=== PATIENT | male | born 1940 | race Caucasian/White ===

== ENCOUNTER 2017-04-12 21:59 | Emergency (ER) | payer MEDICARE, OTHER ==
[2017-04-12 22:10] VITALS: BP 173/95
[2017-04-12] MEDS ORDERED: LIDOCAINE 2%-EPI 1:100000 20 ML MDV ONE (22:21)
--- NOTE | 2017-04-12 22:35 | ED Physician Documentation ---
History of Present Illness - Stated complaint Stated Complaint: R HAND LAC - Chief complaint Chief Complaint: Laceration - History obtained from History obtained from: Patient (pt is here for evaluation of a right hand laceration. he states that ht occured while he was cleaning a glass and the glass broke. + bleeding. last Td shot was 3 years ago.) Review of Systems Skin: reports: Laceration (s) Neurologic: reports: Other (no tingling to finger of right hand.) PD PAST MEDICAL HISTORY - Past Medical History Past Medical History: Yes Cardiovascular: Hypertension - Past Surgical History Past Surgical History: Yes Ortho: Hip replacement - Present Medications Home Medications: Ambulatory Orders Medication Instructions Recorded Confirmed Finasteride 1 tab PO DAILY 04/12/17 04/12/17 Lisinopril [Prinivil] 1 tab PO DAILY 04/12/17 04/12/17 - Allergies Allergies/Adverse Reactions: Allergies Allergy/AdvReac Type Severity Reaction Status Date / Time No Known Drug Allergies Allergy Verified 04/12/17 22:09 - Social History Does the pt smoke?: No Smoking Status: Never smoker Does the pt drink ETOH?: Yes - POLST Patient has POLST: No PD ED PE NORMAL - Vitals Vital signs reviewed: Yes - General General: Alert and oriented X 3, Well developed/nourished - Cardiac Cardiac: Strong equal pulses (Radial ) - Respiratory Respiratory: No respiratory distress - Derm Derm: Other (2cm laceration to the dorsum web space of the right index finger. ) - Neuro Neuro: Other (sensation intact to the right index finger) Results - Vitals Vitals: Vital Signs - 24 hr 04/12/17 22:08 Temperature 36.5 C Heart Rate 75 Respiratory 18 Rate Blood Pressure 173/95 H O2 Saturation 20 L Oxygen O2 Source Room air Procedures - Laceration (location) right index finger Wound type: Flap Neurovascular status: Sensory intact, Motor intact, Vascular intact Tendon involvement: Tendon intact Anesthesia: Lidocaine 1% with epi Wound Preparation: Irrigated copiously NS, Wound explored Skin layer closure: Nylon, Size #-0 - enter number (5-)), Sutures - enter # (4) Other: Patient tolerated well Complexity: Simple PD MEDICAL DECISION MAKING - ED course Complexity details: d/w patient ED course: pt tolerated well. No signs of FB. no x-ray obtained. Pt was N/V intact. closed as above. discussed care with the pt. No indication for abx. Departure - Departure Disposition: 01 Home, Self Care Clinical Impression: Laceration Condition: Good Instructions: ED Laceration Hand Follow-Up: primary, care provider [Other] Comments: Keep the stitches clean and dry but you can shower and wash your hands. Have the stitches removed in about 10 days. Return to the ER for any new or worsening symptoms
== END 2017-04-12 22:50 | disposition home or self-care (01) ==
LOC: ED 21:59
DX: S61.210A Laceration without foreign body of right index finger without damage to nail, initial encounter (principal); W25.XXXA Contact with sharp glass, initial encounter; Y93.G1 Activity, food preparation and clean up; I10 Essential (primary) hypertension; Z96.649 Presence of unspecified artificial hip joint
CPT/HCPCS: 12001; 99282; 99283

== ENCOUNTER 2023-02-01 12:57 | Emergency (ER) | payer MEDICARE, OTHER ==
--- NOTE | 2023-02-01 13:19 | ED Physician Documentation ---
PD HPI HEAD INJURY - Stated complaint Stated Complaint: HEAD INJ - Chief complaint Chief Complaint: Trauma Hd/Nk - History obtained from History obtained from: Patient - History of Present Illness Mechanism of head injury: Fell (he states he tripped on a small bump/curb he did not see and fell face forward, striking face and abrading knuckles and left knee. No LOC.) Where head injury occurred: Street Timing - onset: Today Location of injury: Front Quality of pain: Aching Associated symptoms: No: LOC, AMS Symptoms worsen with: Palpation Contributing factors: Anticoagulated. No: Intoxicated Similar symptoms before: Has not had sx before Review of Systems Eyes: denies: Loss of vision, Decreased vision Skin: reports: Abrasion (s) (left knee, right finger tips, and upper lip.), Laceration (s) (forehead and bridge of nose) Musculoskeletal: denies: Neck pain, Back pain Neurologic: denies: Altered mental status, Headache PD PAST MEDICAL HISTORY - Past Medical History Cardiovascular: Hypertension - Past Surgical History Past Surgical History: Yes Ortho: Hip replacement - Present Medications Home Medications: Ambulatory Orders Medication Instructions Recorded Confirmed Finasteride 1 tab PO DAILY 04/12/17 02/01/23 lisinopriL [Prinivil] 20 mg PO DAILY 04/12/17 02/01/23 Chlorthalidone 25 mg PO DAILY 02/01/23 02/01/23 Dronedarone HCl [Multaq] 400 mg PO DAILY 02/01/23 02/01/23 Rivaroxaban [Xarelto] 20 mg PO DAILY 02/01/23 02/01/23 Tadalafil [Cialis] 20 mg PO DAILY 02/01/23 02/01/23 - Allergies Allergies/Adverse Reactions: Allergies Allergy/AdvReac Type Severity Reaction Status Date / Time No Known Drug Allergies Allergy Verified 02/01/23 14:10 - Social History Does the pt smoke?: No Smoking Status: Never smoker Does the pt drink ETOH?: Yes Does the pt have substance abuse?: No - POLST Patient has POLST: No PD ED PE NORMAL - Vitals Vital signs reviewed: Yes - General General: Alert and oriented X 3, No acute distress, Well developed/nourished - HEENT HEENT: PERRL, EOMI, Other (upper lip abrasion at philtrum. bridge of nose abrasion with small lac 3 mm. no FB. right forehead above eyebrow with abraded skin and laceration. No FB. minimal active bleeding. ) - Neck Neck: Supple, no meningeal sign, No bony TTP, No adenopathy - Derm Derm: Normal color, Warm and dry - Extremities Extremities: Other (her has some bandaides on right finger tips. He says they are not injured significantly and shared decision to keep bandaided.) - Neuro Neuro: Alert and oriented X 3, No motor deficit, No sensory deficit, Normal speech Eye Opening: Spontaneous Motor: Obeys Commands Verbal: Oriented GCS Score: 15 Results - Vitals Vitals: Vital Signs - 24 hr 02/01/23 02/01/23 13:05 14:59 Temperature 37.2 C Heart Rate 71 58 L Respiratory 15 18 Rate Blood Pressure 121/70 O2 Saturation 98 99 Oxygen O2 Source Room air - Rads (name of study) head CT Relevant Findings:: Prelim report reviewed (no ICH nor fractures. ), EMP independent interpretation of test Procedures - Laceration (location) forehead right Length in cm: 2.2 Wound type: Linear Anesthesia: LET Skin layer closure: Nylon, Running, Size #-0 - enter number (6), Sutures - enter # (10) PD Medical Decision Making - ED course Complexity details: reviewed results (head CT without ICH nor acute injury. ), considered differential (he is on Xarelto and had fall striking head. Will get head CT to ensure no ICH. Otherwise forehead lac needs suturing. ), d/w patient Departure - Departure Disposition: 01 Home, Self Care Clinical Impression: Fall from slip, trip, or stumble, Multiple abrasions, Forehead laceration, Anticoagulant long-term use Condition: Stable Record reviewed to determine appropriate education?: Yes Instructions: ED Laceration Facial Sutr Tape Follow-Up: Rodney Mason MD [Primary Care Provider] - Comments: It is okay to wash and shower. Clean off the wound twice a day with soap and water, or peroxide and water. Apply some antibiotic ointment to it to keep it moist. Also to watch for signs of infection such as purulence, redness or increasing pain. Return to your primary care or the ER at the specified time for suture removal. Suture removal 8 to 9 days. Tylenol every 4 hours if needed for pain. Continue with usual medicines. We did do a CT scan of your head and face and neck. Concern with being on anticoagulants is potential ease of getting bleeding and closed spaces such as in the brain. Your CT scans appeared normal without any signs of bleeding, swelling, fractures. Normal activity is okay. Forms: PCP List Discharge Date/Time: 02/01/23 14:59
[2023-02-01] MEDS ORDERED: LIDOCAINE-EPINEPH-TETRACAINE 3 ML SYRINGE TOP STA (13:29)
--- NOTE | 2023-02-01 13:58 | CT Report ---
PROCEDURE: MAXILLOFACIAL WO INDICATIONS: facial pain s/p fall TECHNIQUE: Noncontrast 1.5 mm thick axial images acquired from the mandible through the frontal sinuses, with co alexis and sagittal reformatting. For radiation dose reduction, the following was used: automated ex posure control, adjustment of mA and/or kV according to patient size. COMPARISON: None. FINDINGS: Image quality: Excellent. Bones and teeth: Orbital gallardo are intact. Sinus gallardo show no fracture or deformity. Nasal bones and septum are intact. Visualized portions of the mandible demonstrate no fractures or subluxation. Zygomatic arches are intact. Pterygoid plates are intact. Visualized portions of the skull base an d auditory canals are intact. Sinuses: There is mild mucosal thickening within the bilateral ethmoid, frontal, and right maxillary sinuses. Mastoid air cells are aerated. Soft tissues: No edema, masses, or fluid collections. No enlarged lymph nodes. No soft tissue lace rations or debris. Vascular: Visualized vascular structures appear normal in the absence of contrast. Bony vascular fo ramina and canals are intact. IMPRESSION: 1. No fracture. 2. Sinus disease. Reviewed by: Fabiola Tamayo MD on 02/01/2023 1:57 PM PDT Approved by: Fabiola Tamayo MD on 02/01/2023 1:57 PM PDT Station ID: [id number]
--- NOTE | 2023-02-01 13:58 | CT Report ---
PROCEDURE: HEAD WO INDICATIONS: fall, head injury, pt takes xarelto TECHNIQUE: Noncontrast 4.5 mm thick angled axial sections acquired from the foramen magnum to the vertex. For r adiation dose reduction, the following was used: automated exposure control, adjustment of mA and/or kV according to patient size. COMPARISON: None. FINDINGS: Image quality: Excellent. CSF spaces: Basal cisterns are patent. No extra-axial fluid collections. Ventricles are normal in size and shape. Brain: No midline shift. No intracranial masses or hemorrhage. Ramirez-white matter interface is norm al. Skull and face: Calvarium and visualized facial bones are intact, without suspicious lesions. Sinuses: Visualized sinuses and mastoids are clear. IMPRESSION: No acute intracranial abnormality. Reviewed by: Fabiola Tamayo MD on 02/01/2023 1:56 PM PDT Approved by: Fabiola Tamayo MD on 02/01/2023 1:56 PM PDT Station ID: [id number]
--- NOTE | 2023-02-01 14:34 | CT Report ---
PROCEDURE: CERVICAL SPINE WO INDICATIONS: fall, head/neck pain TECHNIQUE: Noncontrast 3 mm thick sections acquired from the skull base to the T4 level. Sagittal and coronal r eformats were then constructed. For radiation dose reduction, the following was used: automated exp osure control, adjustment of mA and/or kV according to patient size. COMPARISON: None. FINDINGS: Image quality: Excellent. Bones: No fractures or dislocations. Visualized superior ribs are intact. Multilevel degenerative disc and facet disease present. Soft tissues: Prevertebral soft tissues are normal in thickness. No paravertebral hematomas. No ap ical pneumothoraces. IMPRESSION: No acute fracture. No osseous lesion. If symptoms and/or clinical suspicion for pathology continue, f urther assessment with MRI or bone scan is recommended for further assessment. Reviewed by: Fabiola Tamayo MD on 02/01/2023 2:33 PM PDT Approved by: Fabiola Tamayo MD on 02/01/2023 2:33 PM PDT Station ID: [id number]
[2023-02-01 15:06] VITALS: BP 121/70; O2SAT 99
== END 2023-02-01 14:59 | disposition home or self-care (01) ==
LOC: ED 12:57
DX: S01.81XA Laceration without foreign body of other part of head, initial encounter (principal); W01.0XXA Fall on same level from slipping, tripping and stumbling without subsequent striking against object, initial encounter; I10 Essential (primary) hypertension; Z79.01 Long term (current) use of anticoagulants; Z79.899 Other long term (current) drug therapy
CPT/HCPCS: 12011; 36415; 99284

== ENCOUNTER 2023-07-19 14:43 | Outpatient (CLI) | payer MEDICARE, OTHER | END 2023-07-19 14:44 | disposition EMS.NT | LOC: EMS 14:43 | DX: S00.31XA Abrasion of nose, initial encounter (principal); W01.0XXA Fall on same level from slipping, tripping and stumbling without subsequent striking against object, initial encounter; Y92.89 Other specified places as the place of occurrence of the external cause; Z79.01 Long term (current) use of anticoagulants ==

== ENCOUNTER 2023-07-19 15:21 | Emergency (ER) | payer MEDICARE, OTHER ==
--- NOTE | 2023-07-19 16:07 | ED Physician Documentation ---
History of Present Illness - Stated complaint Stated Complaint: HEAD INJ - Chief complaint Chief Complaint: Trauma Hd/Nk - History obtained from History obtained from: Patient - History of Present Illness Pain level max: 5 Pain level now: 5 - Additonal information Additional information: Patient is an 83-year-old male who presents to the emergency department after trip and fall today. He tripped over a small sandbag and struck his face on the concrete. He does take Xarelto but stopped taking it 2 days ago in preparation for an EGD. Has abrasions to the face. No loss of consciousness. Teeth feel normal. No neck or back pain. No numbness or tingling. No seizure activity. No confusion. He states that he had a fall about a week ago where he struck his head as well. He states head CT was negative at that time. Review of Systems Constitutional: denies: Fever, Chills Respiratory: denies: Cough GI: denies: Nausea, Vomiting, Diarrhea Skin: denies: Rash Musculoskeletal: denies: Neck pain, Back pain Neurologic: denies: Focal weakness, Numbness, Confused PD PAST MEDICAL HISTORY - Past Medical History Past Medical History: Yes Cardiovascular: Hypertension - Past Surgical History Past Surgical History: Yes Ortho: Hip replacement - Present Medications Home Medications: Ambulatory Orders Medication Instructions Recorded Confirmed Chlorthalidone 12.5 mg PO DAILY 02/01/23 07/19/23 Dronedarone HCl [Multaq] 400 mg PO BID 02/01/23 07/19/23 Rivaroxaban [Xarelto] 20 mg PO DAILY 02/01/23 07/19/23 Tadalafil [Cialis] 20 mg PO DAILY PRN 02/01/23 07/19/23 Chlorthalidone 0 mg 07/19/23 Dutasteride [Avodart] 0.5 mg PO DAILY 07/19/23 07/19/23 Lisinopril [Zestril] 40 mg PO DAILY 07/19/23 07/19/23 cephALEXin [Keflex] 500 mg PO Q6H 07/19/23 07/19/23 - Allergies Allergies/Adverse Reactions: Allergies Allergy/AdvReac Type Severity Reaction Status Date / Time No Known Drug Allergies Allergy Verified 07/19/23 15:40 - Social History Does the pt smoke?: No Smoking Status: Never smoker Does the pt drink ETOH?: Yes Does the pt have substance abuse?: No - POLST Patient has POLST: No PD ED PE NORMAL - Vitals Vital signs reviewed: Yes - General General: Alert and oriented X 3, No acute distress, Well developed/nourished - HEENT HEENT: PERRL, Other (Abrasions to the upper lip and bridge of the nose. Mild tenderness over the bridge of the nose. Normal dentition. Normal bite. No facial bone tenderness. No palpable skull fractures. No scalp hematomas. No lacerations) - Neck Neck: Supple, no meningeal sign, No bony TTP - Cardiac Cardiac: RRR, Strong equal pulses - Respiratory Respiratory: No respiratory distress, Clear bilaterally - Abdomen Abdomen: Soft, Non tender, Non distended - Back Back: No spinal TTP - Derm Derm: Warm and dry - Extremities Extremities: Normal ROM s pain - Neuro Neuro: Alert and oriented X 3, hold worker 2-12 intact, No motor deficit, No sensory deficit, Normal speech Eye Opening: Spontaneous Motor: Obeys Commands Verbal: Oriented GCS Score: 15 - Psych Psych: Normal mood, Normal affect Results - Vitals Vitals: Vital Signs - 24 hr 07/19/23 07/19/23 07/19/23 15:33 17:50 19:00 Temperature 36.0 C L Heart Rate 89 77 78 Respiratory 15 18 18 Rate Blood Pressure 179/83 H 165/82 H 159/98 H O2 Saturation 97 100 96 07/19/23 20:00 Temperature Heart Rate 80 Respiratory 16 Rate Blood Pressure 144/72 H O2 Saturation 94 Oxygen O2 Source Room air - Labs Labs: Laboratory Tests 07/19/23 07/19/23 07/19/23 18:08 18:08 18:08 WBC 8.3 RBC 4.33 L Hgb 12.0 L Hct 37.3 L MCV 86.1 MCH 27.7 MCHC 32.2 RDW 20.7 H Plt Count 257 MPV 9.3 Neut # (Auto) Not Reportable Lymph # (Auto) Not Reportable Hunt # (Auto) Not Reportable Eos # (Auto) Not Reportable Baso # (Auto) Not Reportable Absolute Nucleated RBC Not Reportable Total Counted 100 Band Neuts % (Manual) 0 Abnorm Lymph % (Manual) 0 Nucleated RBC % Not Reportable Neutrophils # (Manual) 6.6 Lymphocytes # (Manual) 1.1 L Monocytes # (Manual) 0.7 Eosinophils # (Manual) 0.0 Basophils # (Manual) 0.0 Differential Comment MANUAL DIFFERENTIAL WBC Morphology 1+ SMUDGE CELLS Platelet Estimate NORMAL (130-450,000) Platelet Morphology NORMAL APPEARANCE RBC Morph Micro Appear NORMAL APPEARANCE PT 12.5 INR 1.2 APTT 32.7 Sodium 139 Potassium 4.1 Chloride 105 Carbon Dioxide 25 Anion Gap 9.0 BUN 29 H Creatinine 1.0 Estimated GFR (MDRD) 72 L Glucose 109 H Calcium 9.5 Total Bilirubin 0.4 AST 19 ALT 17 Alkaline Phosphatase 57 Total Protein 6.7 Albumin 4.0 Globulin 2.7 Albumin/Globulin Ratio 1.5 - Rads (name of study) head Ct Relevant Findings:: Final report received, See rad report maxillofacial CT Relevant Findings:: Final report received, See rad report cervical spine CT Relevant Findings:: Final report received, See rad report PD Medical Decision Making - ED course Complexity details: reviewed results, re-evaluated patient, considered differential, d/w patient, d/w senior solutions consultant ED course: 83-year-old male status post a ground-level fall. Abrasions to the bridge of the nose and upper lip. Dermabond was applied to these areas as they were slightly oozing. Tetanus up-to-date. He has been off of his Xarelto for the past several days. Head CT shows a small 5 mm subdural hemorrhage in the right frontal area. No midline shift. Discussed the case with Dr. Tobin, neurosurgery on-call at [facility]. She recommends repeat head CT in 4 to 6 hours, if continues to be stable, can discharge home. Recommends holding Xarelto for an additional [address] does not show any significant change. Patient counseled regarding signs and symptoms for which I believe and urgent re-evaluation would be necessary. Patient with good understanding of and agreement to plan and is comfortable going home at this time This document was made in part using voice recognition software. While efforts are made to proofread this document, sound alike and grammatical errors may occur. Departure - Departure Disposition: 01 Home, Self Care Clinical Impression: Traumatic subdural hemorrhage Qualifiers: Encounter type: initial encounter Loss of consciousness presence/duration: without LOC Qualified Code(s): S06.5X0A - Traumatic subdural hemorrhage without loss of consciousness, initial encounter Facial abrasion Qualifiers: Encounter type: initial encounter Qualified Code(s): S00.81XA - Abrasion of other part of head, initial encounter Condition: Good Instructions: ED Head Injury Closed Follow-Up: Rodney Mason MD [Primary Care Provider] - Within 1 week Comments: You have a small amount of bleeding around your brain known as a subdural hemorrhage. Your repeat head CT does not show any significant progression. You will need to hold your Xarelto for the next 5 days. You can resume it on July 25, 2023. Please follow-up with your doctor for further care. Return if you worsen. I spoke with neurosurgery, Dr. Tobin at [facility] tonight. Do not apply any ointment to the areas that were dermabonded tonight as this will dissolve the glue. These areas will heal on their own over the next few days. Please return to the emergency department for worsening headaches, mental status changes, vomiting or any other new or worrisome symptoms. Forms: PCP List
--- NOTE | 2023-07-19 16:42 | CT Report ---
PROCEDURE: CT brain without contrast INDICATIONS: fall, pain, pt on eliquis TECHNIQUE: Helical axial CT of the brain was obtained without contrast and reformatted in multiple p lanes. Radiation dose reduction was achieved using automated exposure control or adjustment of mA and /or kV according to patient size. COMPARISON: None FINDINGS: CSF spaces: Ventricles are appropriate in size and position. No hydrocephalus. Basal cisterns unre markable. Brain: Limited by millimeter subdural hematoma noted on the right extends over the inferior right fr ontal lobe. No mass effect or midline shift. Skull and face: Right periorbital hematoma noted as well. No evidence of skull fracture Sinuses: Visualized sinuses and mastoids are clear. IMPRESSION: Thin right frontal acute subdural hematoma measures 5 mm in thickness. No midline shift. Underlying atrophy and multifocal white matter chronic ischemic change. Right periorbital soft tissue hematoma Note: Critical results were discussed with patient's Physician in the ER on 07/19/2023 at 3:37 PM VALERIY felton. Reviewed by: Jesus Estrada MD on 07/19/2023 3:41 PM [place] Approved by: Jesus Estrada MD on 07/19/2023 3:41 PM [place] Station ID: [id number]
[2023-07-19 18:14] LABS: BASOPHILS % (AUTO) 0.4 %; EOSINOPHILS % (AUTO) 4.9 %; HCT - HEMATOCRIT 37.3 % (42.0-52.0); MEAN CORPUSCULAR HEMOGLOBIN 27.7 pg (27.0-31.0); MEAN CORPUSCULAR HGB CONC 32.2 g/dL (32.0-36.0); MEAN CORPUSCULAR VOLUME 86.1 fL (80.0-94.0); MEAN PLATELET VOLUME 9.3 fL (7.4-11.4); MONOCYTES % (AUTO) 9.6 %; NEUTROPHILS % (AUTO) 71.7 %; PLT - PLATELET COUNT 257 10^3/uL (130-450); RED BLOOD COUNT 4.33 10^6/uL (4.70-6.10); RED CELL DISTRIBUTION WIDTH 20.7 % (12.0-15.0); WHITE BLOOD COUNT 8.3 x10^3/uL (4.8-10.8)
[2023-07-19 18:15] LABS: ABNORMAL LYMPHS % (MANUAL) 0 %; BAND NEUTROPHILS % (MANUAL) 0 %
[2023-07-19 18:26] LABS: PARTIAL THROMBOPLASTIN TIME 32.7 secs (24.9-33.3)
--- NOTE | 2023-07-19 18:28 | CT Report ---
PROCEDURE: CT cervical spine without contrast INDICATIONS: fall, pain, pt on eliquis TECHNIQUE: Helical axial CT of the cervical spine was obtained without contrast and reformatted in m ultiple planes. Radiation dose reduction was achieved utilizing automated exposure control or adjus tment of mA and/or kV according to patient size. COMPARISON: None. FINDINGS: Bones: There is straightening of the normal cervical lordosis. Diffuse disc space narrowing posterior disc osteophyte complex with particularly in the mid cervical spine. Moderate to severe central sten osis present at C5-C6 and C6-7 associated with severe bilateral foraminal stenosis. Reversal normal c ervical lordosis noted Soft tissues: Prevertebral soft tissues are normal in thickness. No paravertebral hematomas. No ap ical pneumothoraces. IMPRESSION: No evidence of fracture or traumatic malalignment. Prior degenerative disc disease and arthropathy as sociated with reversal normal cervical lordosis and moderate to severe central stenosis at C5-6 and C 6-7 Reviewed by: Jesus Estrada MD on 07/19/2023 5:26 PM AKST Approved by: Jesus Estrada MD on 07/19/2023 5:26 PM AKST Station ID: [id number]
[2023-07-19 18:30] LABS: ALBUMIN/GLOBULIN RATIO 1.5 (1.0-2.2); BILIRUBIN,TOTAL 0.4 mg/dL (0.2-1.0); CALCIUM 9.5 mg/dL (8.5-10.3); INR 1.2 (0.8-1.2); POTASSIUM 4.1 mmol/L (3.5-4.5); PT - PROTHROMBIN TIME 12.5 secs (9.9-12.6); TOTAL PROTEIN 6.7 g/dL (6.4-8.9)
--- NOTE | 2023-07-19 18:31 | CT Report ---
PROCEDURE: Maxillofacial WO INDICATIONS: fall, pain, pt on eliquis TECHNIQUE: Helical axial CT of the facial structures and mandible were obtained without intravenous contrast and reformatted in multiple planes. 3-dimensional shaded surface volume rendering was also utilized Radiation dose reduction was achieved using automated exposure control and adjustment of mA and/or kV according to patient size. COMPARISON: None. FINDINGS: Maxillofacial Bones: The zygomaticomaxillary complex is intact. The pterygoid plates and skull base are unremarkable. No evidence of fracture or lytic lesion. Mandible: The mandible is intact without fracture. Unremarkable temporomandibular articulation. Dentition: Unremarkable mandibular and maxillary dentition. Soft tissues: No maxillofacial soft tissue swelling. No radiopaque foreign bodies. Orbits: The osseous orbits, globes and ocular muscles unremarkable. Sinuses and Mastoid: The visualized portion of the paranasal sinuses and mastoids are normal. No air -fluid levels or wall fractures. The nasal vault is unremarkable. IMPRESSION: Unremarkable maxillofacial CT without contrast Reviewed by: Jesus Estrada MD on 07/19/2023 5:30 PM [facility] Approved by: Jesus Estrada MD on 07/19/2023 5:30 PM [place] Station ID: [id number]
[2023-07-19 18:41] LABS: LYMPHOCYTES # (MANUAL) 1.1 10^3/uL (1.5-3.5); LYMPHOCYTES % (MANUAL) 13 %; MONOCYTES # (MANUAL) 0.7 10^3/uL (0.0-1.0); NEUTROPHILS # (MANUAL) 6.6 10^3/uL (1.5-6.6)
[2023-07-19 18:42] LABS: PLATELET MORPHOLOGY NORMAL APPEARANCE (NORMAL); RBC MORPHOLOGY (MULTIPLE) NORMAL APPEARANCE (NORMAL)
[2023-07-19 18:43] LABS: DIFFERENTIAL COMMENT MANUAL DIFFERENTIAL; PLATELET ESTIMATE, MANUAL NORMAL (130-450,000) (NORMAL); WBC MORPHOLOGY (MULTIPLE) 1+ SMUDGE CELLS (NORMAL)
--- NOTE | 2023-07-19 21:06 | CT Report ---
PROCEDURE: Head WO INDICATIONS: evaluated stability of SDH from earlier today TECHNIQUE: Noncontrast 4.5 mm thick angled axial sections acquired from the foramen magnum to the vertex. For r adiation dose reduction, the following was used: automated exposure control, adjustment of mA and/or kV according to patient size. COMPARISON: 07/19/2023 at 3:56 PM FINDINGS: Image quality: Excellent. CSF spaces: Basal cisterns are patent. Again noted is a subacute appearing right frontal subdural he matoma measures 5 mm in thickness unchanged in size compared to earlier study. No new area of extra-a xial hemorrhage is noted. The ventricles are symmetric in size and shape. Brain: No acute intraparenchymal hemorrhage. No significant mass effect or midline shift. There is ce rebral volume loss for age, with resultant ventricular and sulcal prominence. There are periventricu lar and deep white matter chronic small vessel ischemic changes. There is intracranial internal smith tid artery atherosclerosis. Skull and face: Right frontal scalp hematoma is again seen. Calvarium and visualized facial bones esteban ear intact, without suspicious lesions. Sinuses: Visualized sinuses and mastoids are clear. IMPRESSION: Stable appearance of small right frontal subdural hematoma measures 5 mm in thickness. No midline joi ft. Stable right frontal scalp hematoma. No acute skull fracture. Reviewed by: Edgar Lal MD on 07/19/2023 9:04 PM PST Approved by: Edgar Lal MD on 07/19/2023 9:04 PM PST Station ID: [id number]
[2023-07-19 21:22] VITALS: BP 162/57; O2SAT 98
== END 2023-07-19 21:18 | disposition home or self-care (01) ==
LOC: ED 15:21
DX: S06.5X0A Traumatic subdural hemorrhage without loss of consciousness, initial encounter (principal); S00.31XA Abrasion of nose, initial encounter; S00.511A Abrasion of lip, initial encounter; W01.198A Fall on same level from slipping, tripping and stumbling with subsequent striking against other object, initial encounter; Z79.01 Long term (current) use of anticoagulants
CPT/HCPCS: 12011; 36415; 80053; 85025; 85610; 85730; 99284